=== PATIENT | female | born 1960 | race Caucasian/White ===

== ENCOUNTER → 2017-11-04 | Outpatient (CLI) | payer OTHER ==
[~2017-11-04] MED LIST: ATV2 PO; CHOL100010 PO; FLNIN NAE
== END | disposition home or self-care (01) ==
LOC: C.LABSPEC 13:25
PROVIDERS: ATTEND Obstetrics & Gynecology
DX: R39.9 Unspecified symptoms and signs involving the genitourinary system (principal); N76.2 Acute vulvitis